=== PATIENT | male | born 1985 | race Caucasian/White ===

== ENCOUNTER 2016-07-01 20:42 | Inpatient (IN) ==
[2016-07-01] MEDS ORDERED: SODIUM CHLORIDE 0.9% IV STA (20:50)
[2016-07-01] MEDS ORDERED: SODIUM BICARB IV STA (20:50)
--- NOTE | 2016-07-01 20:56 | Emergency Department Note ---
Mahad Baker Sierra, am scribing for, and in the presence of, Del Ceja MD 20:53. Marcial Baker Robert M, MD, personally performed the services described in this documentation, ascribed by Elizabeth Tobin in my presence, and it is both accurate and complete . Arrival - Arrival Stated Complaint: hallucinations Mode of Arrival: Ambulatory Limitations: No Limitations Source: Patient - History of Present Illness HPI Narrative: Pt is a 31 y/o male that was brought to the ED via EMS with c/o bad kidney function. Pt denies any pain. He reports he got into rabdo due to daily meth use. Pt reports he snorts the meth. He denies any health problems. Pt is has no suicidal ideation. No other complaints/pain in ED. Consistency: constant Severity: moderate, severe Severity scale (1-10): 7 Quality: other Review of System - Review of System 12 point system: reviewed and no additional remarkable complaints except as stated - Review of System Constitutional: Absent: fever Respiratory: Absent: cough Cardiovascular: Absent: chest pain Gastrointestinal: Absent: abdominal pain, nausea, vomiting Genitourinary male: Present: other (bad kidney function) Musculoskeletal: Absent: arm pain, back pain, leg pain, neck pain Skin: Absent: rash Neurological: Absent: headache Psychiatric: Absent: anxiety, suicidal thoughts Exam Vital Signs: Vital Signs Temperature 98.8 F 07/01/16 20:42 Pulse Rate 105 H 07/01/16 20:42 Respiratory Rate 20 07/01/16 20:42 Blood Pressure 139/80 07/01/16 20:42 O2 Sat by Pulse Oximetry 98 07/01/16 20:42 - General General appearance: alert, in no apparent distress, other (choreiform) - Head Head exam: Present: atraumatic, normocephalic - Eye Eye exam: Present: PERRL, EOMI - ENT ENT exam: Present: mucous membranes moist. Absent: mucous membranes dry - Neck Neck exam: Present: full ROM. Absent: tenderness - Chest Chest inspection: Present: symmetric chest wall rise. Absent: tenderness - Respiratory Respiratory exam: Present: normal lung sounds bilaterally. Absent: respiratory distress - Cardiovascular Cardiovascular exam: Present: regular rate, normal rhythm, normal heart sounds - Abdominal Exam Abdominal exam: Present: soft. Absent: tenderness - Extremities Exam Extremities exam: Present: full ROM. Absent: tenderness - Back Exam Back exam: Present: full ROM. Absent: tenderness - Neurological Exam Neurological exam: Present: alert, oriented X3, CN II-XII intact. Absent: motor sensory deficit - Psychiatric Psychiatric exam: Present: normal affect, normal mood. Absent: suicidal ideation - Skin Skin exam: Present: warm, dry Course - Reevaluation(s) Reevaluation #1: Despite the patient's tach ataxic cordiform movements he is relatively well oriented. He is following commands and not particularly combative or otherwise abusive. Reviewing his labs demonstrates a CK of 9000 with elevated creatinine and only minimally elevated potassium of 5.4. Upon repeat CK, urine myoglobin, and alkalinize his urine. Time: 20:55 - Consultations Consultation #1: Dr. Paul Timmons will evaluate and admit the patient. Time: 20:55 Disposition Clinical Impression: Methamphetamine abuse, Rhabdomyolysis, Acute renal failure Case discussed with: patient Disposition: Still a Patient Condition: Stable Time of Disposition: 20:56
[2016-07-01] MEDS ORDERED: MORPHINE 2 MG/1 ML SYRINGE IV PRN (22:03)
[2016-07-01] MEDS ORDERED: BISACODYL 5 MG TABLET PO PRN (22:03)
[2016-07-01] MEDS ORDERED: ACETAMINOPHEN 325 MG TABLET PO PRN (22:03)
[2016-07-01] MEDS ORDERED: ONDANSETRON 4 MG/2 ML VIAL IV PRN (22:03)
--- NOTE | 2016-07-01 22:07 | Hospitalist History & Physical ---
Assessment and Plan (1) Drug-induced encephalopathy Status: Acute Current Visit: Yes (2) Acute renal failure Status: Acute Current Visit: Yes (3) Methamphetamine abuse Status: Acute Current Visit: Yes (4) Rhabdomyolysis Status: Acute Assessment and plan: Plan: Admit for hydration, we'll start bicarbonate infusion, trend renal function. Repeat CPK. Ativan for agitation. Clinical picture seems consistent with drug- induced encephalopathy/withdrawal and rhabdomyolysis with acute renal failure. Current Visit: Yes History of Present Illness Chief complaint: transfer from outside hospital due to renal failure and rhabdo History of present illness: Mr. Diaz is a 31 year old male who was high on meth about 2 days ago, recently [facility] from [facility], found walking around aimlessly, agitated and was brought to the hospital. He was transferred from an outside hospital due to acute renal failure and suspected rhabdo in the setting of acute drug withdrawal/drug- induced encephalopathy. At the bedside he is extremely fidgety, will answer most questions but starts talking to people who were not in the room. He denies chest discomfort or shortness of breath. He states he's been doing methamphetamines for the last 12 years. He smokes cigarettes, drinks alcohol daily. That about as much history as I can obtain from him at this time. Home Medications Medication Instructions Recorded Confirmed Type No Known Home Medications [No 07/01/16 07/01/16 History Known Home Medications] Allergies Allergy/AdvReac Type Severity Reaction Status Date / Time Sulfa (Sulfonamide AdvReac Shakiness Verified 07/01/16 20:53 Antibiotics) Medical,Surgical,& Family Hx - Medical History Psychological: History of: Anxiety Disorders HEENT: History of: Ear Problem (tubes) - Surgical History Surgical History: noncontributory - Family History Family History: noncontributory - Social History Smoking Status: Current every day smoker Have you smoked in the last 12 months: Yes Time spent discussing smoking cessation with patient: 3 to 10 minutes Frequency of Alcohol Use: Frequently Type of Drug Use: Cocaine, Methamphetamine Marital Status: Unknown Functional capacity: independent ambulation Review of systems: A 12 point review of systems is negative except as specified in the HPI Exam - Constitutional Vitals: Period Temp Pulse Resp BP Sys/Roth Pulse Ox Last 24 Hr 98.8 F-98.8 F 103-111 19-20 112-141/64-80 98-100 Exam: EXAM: CONSTITUTIONAL: non toxic, agitated, fidgety, cooperative HEENT: NC, AT, OP dry mucous membranes, ASAF, EOMI CV: RRR no m/g/r RESP: clear B/L, no w/r/r GI: abd soft, NT, ND, +bowel sounds INTEGUMENTARY: no rash EXTREMITIES: no c/c/e NEURO: no focal deficits PSYCH: Fidgety, paranoid, agitated, talking to people who aren't there, hearing voices, however cooperative with the exam Results - Labs Lab Results: I have reviewed the past 24 hour labs (outside labs reviewed) - Diagnostic Findings Procedure: CT: image reviewed by me, report reviewed by me
[2016-07-01] MEDS ORDERED: SODIUM BICARB INJ 150 MEQ in STERILE WATER INJ 850 ML IV SCH (22:30)
[2016-07-01] MEDS: STERILE WATER IV SCH (23:24)
[2016-07-01] MEDS: SODIUM BICARB IV SCH (23:24)
[2016-07-01] MEDS: LORazepam 2 MG/1 ML VIAL IV PRN (23:49)
[2016-07-02] MEDS: SODIUM BICARB IV SCH ×5 (04:58→20:26)
[2016-07-02] MEDS: STERILE WATER IV SCH ×5 (04:58→20:26)
[2016-07-02 06:24] LABS: Basophils % 0.4 % (0.0-0.8); Eosinophils # 0.1 10*3/uL (0.0-0.87); Eosinophils % 0.6 % (0.00-10.9); Hematocrit 34.9 VOL% (42.0-52.0); Hemoglobin 11.9 GM/DL (14.0-18.0); Immature Granulocytes % 0.5 %; Immature Granulocytes Absolute 0.05 #; Lymphocytes # 1.3 10*3/uL (1.4-4.0); Lymphocytes % 12.7 % (21.2-54.2); Mean Corpuscular HGB Conc 34.1 GM/DL (32-36); Mean Corpuscular Hemoglobin 32 PG (27-34); Mean Corpuscular Volume 93.3 FL (87-102); Mean Platelet Volume 11.5 FL (9.6-12.0); Monocytes # 0.8 10*3/uL (0.11-0.8); Monocytes % 7.7 % (1.7-12.7); Neutrophils # 8.2 10*3/uL (1.4-7.4); Neutrophils % 78.1 % (38.7-73.9); Platelet Count 198 T/CUMM (130-400); Red Blood Count 3.74 MC/CUMM (3.8-5.5); White Blood Count 10.4 T/CUMM (4-12)
[2016-07-02 06:55] LABS: Albumin 2.6 G/DL (3.4-5.0); Calcium 7.6 MG/DL (8.5-10.1); Osmolality,Calculated 316.7 MOS/KG (273-304); Potassium 4.5 MMOL/L (3.5-5.1); Total Protein 5.5 G/DL (6.4-8.3)
[2016-07-02] MEDS: PANTOPRAZOLE 40 MG TABLET PO SCH (08:36)
[2016-07-02] MEDS: LORazepam 2 MG/1 ML VIAL IV PRN ×3 (11:33→20:26)
--- NOTE | 2016-07-02 13:37 | Hospitalist Progress Note ---
Assessment and Plan (1) Acute renal failure Status: Acute Assessment and plan: 1)AZUL due to rahbdomyolysis- CPk down a bit this morning. Continue IVF with bicarb, recheck in am. He is eating well, denies pain. 2)drug abuse- encouraged cessation 3)social- not clear where he lives or whom he lives with. Current Visit: Yes (2) Methamphetamine abuse Status: Acute Current Visit: Yes (3) Rhabdomyolysis Status: Acute Current Visit: Yes (4) Drug-induced encephalopathy Status: Acute Current Visit: Yes Hospitalist: Subjective Interval history: Mr Diaz feels ok today. He has eaten his lunch. HE is and was [facility] from [facility]. He denies shortness of breath, nausea, pain. No injuries. He has been using drugs a "long time". Exam - Constitutional Vitals: Period Temp Pulse Resp BP Sys/Roth Pulse Ox Last 24 Hr 97.1 F-97.9 F 88-106 18-22 91-149/54-92 92-100 General appearance: no acute distress (slow to respond, but fidgets), under weight - Head Head exam: Present: normocephalic, atraumatic - Respiratory Respiratory exam: Present: clear to auscultation bilaterally - Cardiovascular Cardiovascular exam: Present: regular rate and rhythm - GI/Abdominal GI/Abdominal exam: Present: normal bowel sounds, soft. Absent: tenderness - Extremities Exam Extremities exam: Absent: edema - Neurological Exam Neurological exam: Present: alert, oriented X3 (oriented to place and 'daytime' , doesn't know how he got here from [place]- he says he is from [place] and his lives in [place].) Results - Labs CBC & BMP: 07/02/16 06:11 07/02/16 06:11 Lab Results: I have reviewed the past 24 hour labs
[2016-07-02] MEDS: ZIPRASIDONE 20 MG/1 ML VIAL IM PRN (16:42)
[2016-07-02] MEDS: chlordiazePOXIDE 10 MG CAPSULE PO SCH ×2 (20:07→23:26)
[2016-07-02 21:13] LABS: Calcium 7.7 MG/DL (8.5-10.1); Osmolality,Calculated 312.6 MOS/KG (273-304)
[2016-07-03] MEDS: chlordiazePOXIDE 10 MG CAPSULE PO SCH ×5 (00:06→22:49)
[2016-07-03] MEDS: LORazepam 2 MG/1 ML VIAL IV PRN ×3 (00:30→11:45)
[2016-07-03] MEDS: SODIUM BICARB IV SCH ×4 (03:12→23:47)
[2016-07-03] MEDS: STERILE WATER IV SCH ×4 (03:12→23:47)
[2016-07-03 05:06] LABS: Calcium 7.5 MG/DL (8.5-10.1); Magnesium 2.7 MG/DL (1.8-2.4); Osmolality,Calculated 307.4 MOS/KG (273-304); Potassium 4.3 MMOL/L (3.5-5.1)
[2016-07-03] MEDS: PANTOPRAZOLE 40 MG TABLET PO SCH (08:26)
--- NOTE | 2016-07-03 12:19 | Hospitalist Progress Note ---
Assessment and Plan (1) Acute renal failure Status: Acute Assessment and plan: 1)AZUL due to rhabdomyolysis- CPK down to under 3000 this am. Continue IVF with bicarb, recheck in am. He is eating well, denies pain. He is medically stable for transfer to psych facility. 2)drug abuse- encouraged cessation 3)social- not clear where he lives or whom he lives with. 4)psych- he is actively psychotic and needs to be placed somewhere for treatment. Referral made by LV. Current Visit: Yes (2) Methamphetamine abuse Status: Acute Current Visit: Yes (3) Rhabdomyolysis Status: Acute Current Visit: Yes (4) Drug-induced encephalopathy Status: Acute Current Visit: Yes Hospitalist: Subjective Interval history: Mr Diaz is calm this morning. He was moved to ICU for 1:1 obs after he eloped yesterday. He was hearing voices and having visual hallucinations. He has a grandmother the nurse talked to who says she dunn paid fo rhim to go to rehab in the past. He tells me today that he has been told he has schizophrenia. Exam - Constitutional Vitals: Period Temp Pulse Resp BP Sys/Roth Pulse Ox Last 24 Hr 97.5 F-99.4 F 73-106 16-20 116-134/65-83 94-98 General appearance: normal weight, no acute distress - Eye Eye exam: Present: EOMI. Absent: scleral icterus - Respiratory Respiratory exam: Present: clear to auscultation bilaterally - Cardiovascular Cardiovascular exam: Present: regular rate and rhythm - GI/Abdominal GI/Abdominal exam: Present: normal bowel sounds, soft. Absent: tenderness - Extremities Exam Extremities exam: Absent: edema Results - Labs CBC & BMP: 07/02/16 06:11 07/03/16 03:52 Lab Results: I have reviewed the past 24 hour labs
[2016-07-03] MEDS: ZIPRASIDONE 20 MG/1 ML VIAL IM PRN (16:05)
[2016-07-03] MEDS: NICOTINE 21 MG/24 HR PATCH TRANSDERM PRN (16:05)
[2016-07-04] MEDS: chlordiazePOXIDE 10 MG CAPSULE PO SCH ×4 (01:10→18:05)
[2016-07-04] MEDS: SODIUM BICARB IV SCH ×2 (06:06→13:06)
[2016-07-04] MEDS: STERILE WATER IV SCH ×2 (06:06→13:06)
[2016-07-04 06:26] LABS: Calcium 7.5 MG/DL (8.5-10.1); Potassium 4.2 MMOL/L (3.5-5.1)
[2016-07-04] MEDS: PANTOPRAZOLE 40 MG TABLET PO SCH (08:50)
[2016-07-04] MEDS ORDERED: NITROGLYCERIN SL 0.4 MG TABLET SL ONE ×2 (15:04→15:10)
[2016-07-04] MEDS: LORazepam 2 MG/1 ML VIAL IV PRN (15:15)
--- NOTE | 2016-07-04 16:04 | Hospitalist Progress Note ---
Assessment and Plan (1) Acute renal failure Status: Acute Assessment and plan: 1)AZUL due to rhabdomyolysis- CPK down to about 1000this am. DC IVF. He is eating well, denies pain. He is medically stable for transfer to psych facility. He complained of chest pain in his muscle of his left axilla. EKG normal. monitor, no labs. 2)drug abuse- encouraged cessation 3)social- not clear where he lives or whom he lives with. 4)psych- he is actively psychotic and needs to be placed somewhere for treatment. Referral made by LV. Current Visit: Yes (2) Methamphetamine abuse Status: Acute Current Visit: Yes (3) Rhabdomyolysis Status: Acute Current Visit: Yes (4) Drug-induced encephalopathy Status: Acute Current Visit: Yes Hospitalist: Subjective Interval history: Mr Diaz felt ok this morning. He had rested well and denied pain. Eating ok. Wants to leave. His grandmother has consulted with our social science professor and after the 4 possible facilities refused to take him, she plans to have him committed. She did not complete that task today, but should in the morning. Hopefully we will be able to complete this before his 72hour hold is . Exam - Constitutional Vitals: Period Temp Pulse Resp BP Sys/Roth Pulse Ox Last 24 Hr 97.5 F-98.9 F 61-78 16-18 103-126/58-76 94-97 General appearance: normal weight, no acute distress - Head Head exam: Present: normocephalic, atraumatic - Eye Eye exam: Present: EOMI. Absent: scleral icterus - Respiratory Respiratory exam: Present: clear to auscultation bilaterally - Cardiovascular Cardiovascular exam: Present: regular rate and rhythm - GI/Abdominal GI/Abdominal exam: Present: normal bowel sounds, soft. Absent: tenderness - Extremities Exam Extremities exam: Absent: edema - Neurological Exam Neurological exam: Present: alert, oriented X3 - Skin Skin exam: Present: warm, dry Results - Labs CBC & BMP: 07/02/16 06:11 07/04/16 05:18 Lab Results: I have reviewed the past 24 hour labs
[2016-07-05] MEDS: chlordiazePOXIDE 10 MG CAPSULE PO SCH ×3 (00:05→13:35)
[2016-07-05] MEDS: PANTOPRAZOLE 40 MG TABLET PO SCH (08:56)
[2016-07-05] MEDS: NICOTINE 21 MG/24 HR PATCH TRANSDERM PRN (08:56)
[2016-07-05] MEDS: ZIPRASIDONE 20 MG/1 ML VIAL IM PRN (08:56)
--- NOTE | 2016-07-05 09:26 | EKG Report ---
Stationary ECG Study [facility] Test Date: 07/04/2016 3:11:42 PM Pat Name: KATRINA BINGHAM Department: Room: 115 Gender: M Geography Faculty Member: : 1985 Requested by: Linda Paula Order Number: [id number] Reading MD: CLYDE ROBINS Intervals [place] Rate: 67 P: 61 DE: 156 QRS: 85 QRSD: 83 T: 62 QT: 389 QTc: 404 Interpretive Statements SINUS RHYTHM INTERPRETATION BASED ON A DEFAULT AGE OF 40 YEARS Electronically Signed On 07-05-16 10:05:36 [employer] by CLYDE ROBINS [email or web address]
--- NOTE | 2016-07-05 14:04 | Discharge Summary ---
Hospital Course - Hospital Course Hospital Course: Mr Diaz presented from care home for rhabdomyolysis with AZUL and psychosis. He had been incarcerated after he was found wandering in [place] and had cocaine and meth in his system. He was treated with IVF and his rhabdo and AZUL resolved. His psychosis explains his behavior and attempt to elope so he was moved to ICU and watched 1:1. Our criminal justice social worker has spent the last [address] No where would take him because he did nto have a payor source. His grandmother with whom he lives planned to court commit him but did not return to the courthouse to turn in the paperwork. She reports that his auditory and visual hallucinations have gone on for a long time. He is seen at [facility] and receives meds for psychosis there. His 72 hour hold is up and he wants to leave. He denies plans to harm himself or others and agrees to go home and continue outpatient counseling. His grandmother may complete the paperwork for commitment in the future if she changes her mind. Diagnosis - Discharge Diagnosis (1) Acute renal failure Status: Resolved (2) Methamphetamine abuse Status: Resolved (3) Rhabdomyolysis Status: Resolved (4) Drug-induced encephalopathy Status: Resolved Specialty Discharge - Follow Up or Referrals Follow up with: Your, counselor [Other] - 3 Days Discharge Plan - Discharge Data Disposition: Disch To Home/Self Care Condition at Discharge: Stable Discharge Diet: regular diet Activity: resume usual activities as tolerated - Discharge Medications No Action No Known Home Medications [No Known Home Medications] - Follow Up or Referral - Forms/Instructions Additional Discharge Instructions: Do not use drugs. go to your counselor. Take your meds. Exam - Constitutional Vitals: Period Temp Pulse Resp BP Sys/Roth Pulse Ox Last 24 Hr 97.9 F-98.7 F 63-78 16-20 120-142/68-89 96-98 General appearance: no acute distress, under weight - Head Head exam: Present: normocephalic, atraumatic - Eye Eye exam: Present: EOMI. Absent: scleral icterus - Respiratory Respiratory exam: Present: clear to auscultation bilaterally - Cardiovascular Cardiovascular exam: Present: regular rate and rhythm - GI/Abdominal GI/Abdominal exam: Present: normal bowel sounds, soft. Absent: tenderness - Extremities Exam Extremities exam: Absent: edema DS: Provider Date of admission: 07/01/16 22:03 Primary care physician: . No PCP Attending physician on admission: Linda Paula MD Consults: 07/02/16 00:23 Consult to Dietitian [CONS] Routine Reason for Dietitian: Dietary Consult 07/02/16 00:36 Consult to Pharmacy [CONS] Routine Reason for Pharmacy Consult: Adjust Meds Renal Funct Discharging clinician: Linda Paula MD
[2016-07-05 15:23] VITALS: BP 124/73
== END 2016-07-05 16:10 | disposition home or self-care (01) | DRG 682 ==
LOC: N.ED 20:42 → N.EDINP 22:03 → N.3E 22:44 → N.ICU 07-02 17:31
PROVIDERS: ADMIT Internal Medicine; ATTEND Internal Medicine